=== PATIENT | female | born 1985 | race Caucasian/White ===

== ENCOUNTER 2021-10-26 21:01 | Emergency (ER) | payer SELFPAY ==
[~2021-10-26 21:01] MED LIST: FLOMAX0.4 MG PO; TORADOL 10 MG T10 MG PO; ZOFRAN ODT 4 MG4 MG PO
[2021-10-26 22:27] LABS: HEMOGLOBIN 13.5 gm/dl (12.3-15.3); RED BLOOD COUNT 4.45 M/UL (4.00-5.10); WHITE BLOOD COUNT 7.5 K/UL (4.5-11.0)
[2021-10-26 22:48] LABS: BUN/CREATININE RATIO 14 (0-10)
== END 2021-10-26 23:35 | disposition home or self-care (01) ==
LOC: ER1 21:01
PROVIDERS: Physician Assistant Medical
DX: M27.2 Inflammatory conditions of jaws (principal)
CPT/HCPCS: 80053; 85025; 99283